=== PATIENT | male | born 1995 | race Caucasian/White ===

== ENCOUNTER 2018-12-16 09:56 | Day surgery (SDC) | payer OTHER ==
[2018-12-09 12:19] VITALS: BMI 29.4
[2018-12-16] MEDS ORDERED: MIDAZOLAM HCL 2 MG/2 ML SINGLE DOSE VIAL ONE ×3 (11:34→12:34)
[2018-12-16] MEDS ORDERED: ROPIVACAINE HCL 0.5% 30ML VIAL ONE (11:34)
[2018-12-16] MEDS ORDERED: BUPIVACAINE HCL/PF 2.5 MG/ML - 30 ML VIAL IJ ONE (12:04)
[2018-12-16] MEDS ORDERED: LIDOCAINE HCL 2% (20ML MULTI-DOSE VIAL) NR ONE (12:04)
[2018-12-16] MEDS ORDERED: PROPOFOL 20 ML ONE ×2 (12:31→13:59)
[2018-12-16] MEDS ORDERED: ceFAZolin SODIUM 1 GM VIAL ONE (12:36)
[2018-12-16] MEDS ORDERED: GUM MASTIC/STORAX/MSAL/ALCOHOL 1 DRP DROPSBTL MC ONE (14:42)
[2018-12-16] MEDS ORDERED: ONDANSETRON 4 MG/2 ML VIAL IVPUSH PRN (15:04)
[2018-12-16] MEDS ORDERED: oxyCODONE HCL 5 MG TABLET PO PRN ×2 (15:04)
[2018-12-16] MEDS ORDERED: PROMETHAZINE HCL 25 MG/1 ML VIAL IVPB PRN (15:04)
[2018-12-16 15:27] VITALS: PULSE 70; TEMP 97.9
[2018-12-16 15:46] VITALS: BP 122/56
--- NOTE | 2018-12-17 20:14 | OP ---
DATE OF OPERATION: 12/16/2018 PREOPERATIVE DIAGNOSIS: Left scaphoid proximal pole nonunion. POSTOPERATIVE DIAGNOSIS: Left scaphoid proximal pole nonunion. OPERATIVE PROCEDURE: Repair of left scaphoid proximal pole nonunion with internal fixation and autograft bone grafting. SURGEON: [place] Domínguez M.D. OPHTHALMIC PHOTOGRAPHER: Florin Lynn ANESTHESIA: Regional. COMPLICATIONS: None. ESTIMATED BLOOD LOSS: Minimal. INDICATION FOR PROCEDURE: The patient is a 23-year-old male with the above finding indicated for operative treatment. Risks, benefits, and alternatives were discussed with the patient at length and proper informed consent was obtained. DESCRIPTION OF PROCEDURE: After proper identification of the patient and correct operative site, patient was brought to the operating room and placed supine on the operating room table, all bony prominences well padded. Sedation and regional anesthesia were given. Left upper extremity was prepped and draped in the usual sterile fashion. Well-padded tourniquet was placed with a sterile prep. Esmarch bandage was used to exsanguinate the left upper extremity. Tourniquet inflated to 250 mmHg. Longitudinal incision made over the dorsal aspect of the wrist in line with the 3rd metacarpal and central wrist. Incision was taken sharply through skin with blunt and sharp dissection of subcutaneous tissues. Extensor retinaculum was identified, and a 3rd dorsal compartment was divided, and extensor pollicis longus tendon was transposed. It was left transposed throughout the procedure and after the procedure. Retinaculum was elevated off the dorsal wrist capsule, elevated in the 4th and 2nd dorsal compartments to achieve this. A ligament sparing capsulotomy was then performed by making incision in the substance of the dorsal intercarpal and dorsal radial carpal ligament in a triangular, radially based flap. This exposed the radial carpal joint and the scaphoid proximal pole nonunion was identified. This was found to be unstable with fracture of both the bone and cartilage. Remainder of the joint was without any evidence of significant damage in the area visualized. At this point, the nonunion site was opened, and significant sclerotic changes and cystic changes were found. The proximal pole appeared to be avascular. The proximal pole was fairly small as well. Using K-wires for trepanation and curets, the sclerotic bone on both sides of the nonunion were carefully debrided down to healthy bone. Care was taken to leave enough bone for purchase, and the proximal component as this fragment was quite small. Once this was achieved, the nonunion segment was reduced into satisfactory position and held with 2 Osteomed guidewire/K-wires. Proper reduction was confirmed radiographically in multiple planes. The bone graft was then harvested from the dorsal aspect of the distal radius. The tubercle was excised and cancellus bone was harvested from the distal radius, taking care not to penetrate the cortex or articular surface. Bone graft was then packed into nonunion site, and then the guidewires were overdrilled and replaced with Osteomed 2.0-mm headless compression screws. Two total screws were used, obtaining excellent compression and stability. Both screws were buried beneath the chondral surface visually. Radiographs were taken which confirmed proper placement and sizing of all hardware as well as reduction of the nonunion site and adequate placement of bone graft. Carpal alignment was also confirmed. Wound was then repaired in layers including the capsule, extensor retinaculum with the extensor pollicis longus transposed and the subcutaneous layer and skin with Vicryl sutures, and then Monocryl suture for the skin. Steri-Strips, sterile dressings were applied. Long-arm splint was placed. Patient was reversed from anesthesia and brought to recovery in stable condition. He tolerated the procedure well. Pito Schuler, the instructional assistant, was integral throughout the procedure. Procedure could not have been performed without a skilled operative instructional assistant. CHINA DOMÍNGUEZ M.D. [id number]
== END 2018-12-16 15:48 | disposition home or self-care (01) ==
LOC: FASU 09:56
PROVIDERS: ATTEND Orthopaedic Surgery Hand Surgery
PROC: 0PSN04Z Reposition Left Carpal with Internal Fixation Device, Open Approach (ICD-10-PCS; principal; 2018-12-16 12:51)
DX: S62.035K Nondisplaced fracture of proximal third of navicular [scaphoid] bone of left wrist, subsequent encounter for fracture with nonunion (principal); X58.XXXD Exposure to other specified factors, subsequent encounter
CPT/HCPCS: 73110-TC-LT-FY